=== PATIENT | female | born 2000 | race Caucasian/White ===

== ENCOUNTER → 2022-06-08 | Outpatient (CLI) | payer BC, SELFPAY ==
--- NOTE | 2022-06-08 10:36 | STEWCON_ITS ---
Reason For Study: SOB Stress Results Protocol: Mata Protocol WITH DEFINITY Maximum Predicted HR: 200 bpm Target HR: 170 bpm % Maximum Predicted HR: 95 % DurationHeart Rate Stage (mm:ss) (bpm) BP Comment BASELINE 82 138/802CC DEFINITY FOR ENTIRE TEST STAGE 3:00 141 122/88SOB NOTED TOWARDS END OF STAGE STAGE 2 3:00 146 138/78SOB NOTED STAGE 3 3:00 174 142/8 STAGE 4 0:37 190 / RECOVERY 86 130/62 Stress Duration: 9:37 mm:ss Maximum Stress HR: 190 bpm Baseline Echocardiogram Findings The estimated ejection fraction is 60-65 %. Post stress EF is 70%. Stress Echo Wall motion Data Resting WM Intermediate WM Stress WM Resting Wall Motion Wall Motion Stress No regional wall motion Parasternal long axis and short abnormalities noted. axis views revealed no significant regional wall motion abnormalities. Apical four- chamber view post stress is not available. Apical 2 chamber view post stress appears to be somewhat different orientation than the resting images making comparison with the resting images not ideal. EKG Data Sinus rhythm, incomplete right bundle branch block. No significant ischemic changes. Symptoms with Stress The patient experinced No chest pain . ECHO/Stress Test Echo W/Contrast Interpretation Summary The estimated ejection fraction is 60-65 %. Stress echo is negative for definite evidence of stress-induced EKG or echocard iographic changes of ischemia. Test is negative for exercise-induced chest pain. Functional capacity is normal This test has some limitations as described in the body of the report and if th e clinical suspicion for ischemia is high, consider a nuclear stress test. Ordering Physician: LOKESH CHAU Referring Physician: LOKESH CHAU Performed By: Trisha Mancera, RDCS, RVT
== END | disposition home or self-care (01) ==
LOC: CVS 10:32
DX: R00.2 Palpitations (principal); R06.09 Other forms of dyspnea; I45.10 Unspecified right bundle-branch block
CPT/HCPCS: 93017; 93350; Q9957; A4216; C8928

== ENCOUNTER → 2022-11-13 | Outpatient (CLI) | payer BC, SELFPAY ==
[2022-11-13 11:30] LABS: EXAGEN MAILED SPECIMEN
[2022-11-13 12:13] LABS: Absolute Lymphocyte Count 1.64 X10^3/uL (0.83-4.51); Basophil# 0.05 X10^3/uL; Basophil% 0.7 % (0-1); Eosinophil# 0.38 X10^3/uL; Eosinophils% 5.1 % (0-5); Hemoglobin 14.6 g/dL (12.0-15.0); Lymphocyte # 1.64 X10^3/ul (0.83-4.51); Mean Corpuscular Hgb 28.3 pg (27.0-32.0); Mean Corpuscular Volume 83.5 fL (81-99); Mean Platelet Vol. 12.5 fl (6.2-12.0); Monocyte% 5.4 % (0-10); NRBC Flagged by Analyzer 0 % (0-5); Neutrophil # 4.96 X10^3/uL (2.7-7.7); Neutrophil % 66.5 % (47-70); Platelet Count 255 K/mm3 (150-450); RBC Distribution Width CV 11.9 % (11.6-14.6); RBC Distribution Width SD 36.2 fl (35.1-43.9); Red Blood Count 5.15 M/mm3 (4.2-5.4); White Blood Count 7.5 K/mm3 (4.4-11.0)
[2022-11-13 12:19] LABS: International Normalized Ratio 1.1; Prothrombin Time (Protime)PT. 14.4 SECONDS (11.7-14.9)
[2022-11-13 12:21] LABS: Partial Thromboplast Time 35.5 Seconds (24.1-36.2)
[2022-11-13 12:24] LABS: Color, Urine Yellow (Yellow); Glucose, Dipstick Normal (Normal); Ketone-Dipstick 5 mg/dl (Negative); Leukocyte Esterase-Dipstick Negative /ul (Negative); Nitrite-Dipstick Negative (Negative); Occult Blood-Urine 10 /ul (Negative); Protein-Dipstick 15 mg/dl (Negative); Specific Gravity, Urine 1.025 (1.002-1.030); Urine Bilirubin Dipstick Negative (Negative); Urine Clarity Cloudy (Clear); Urine Urobilinogen Normal (Normal)
[2022-11-13 12:55] LABS: ALB/GLOB Ratio 1.2 RATIO (0.9-2.4); AST(SGOT) 13 U/L (15-37); Alanine Aminotransfer ALT/SGPT 20 U/L (13-56); Albumin, Serum 4.2 g/dL (3.2-5.0); Alkaline Phosphatase 61 U/L (45-117); Anion Gap 4 (5-15); BUN 17 mg/dL (7-18); BUN/Creat Ratio 17.6 RATIO (10-20); Calcium,Total 9.2 mg/dL (8.5-10.1); Chloride 109 mmol/L (98-107); Creatinine, Serum 0.97 mg/dL (0.55-1.02); EST Glomerular Filtration Rate 78 mL/min (>60); Est Glom Filt Rate - Afr Amer 94 mL/min (>60); Globulin 3.6 g/dL (2.2-4.2); Glucose 92 mg/dL (74-106); Protein, Total 7.8 g/dL (6.4-8.2); Sodium Level 138 mmol/L (136-145)
[2022-11-13 13:12] LABS: Protein, Urine (Random) 10.6 mg/dL (<11.9); Protein:Creat Ratio 41 mg/g CRE (0-200)
[2022-11-13 13:19] LABS: Hepatitis B Surface Antibody Reactive; Hepatitis B Surface Antigen Non-Reactive (Nonreactive); Hepatitis C Antibody Non-Reactive (Nonreactive)
[2022-11-15 18:08] LABS: Dilute Prothrombin Time (dPT) 39.4 sec (0.0-47.6); Dilute Russell Viper Venom 42.2 sec (0.0-47.0); Hexagonal Phase Phospholipid 9 sec (0-11); Hexagonal Phase Phospholipid 2 9 sec (0-11); Interpretation Comment: (.); PTT-LA 46.9 sec (0.0-43.5); PTT-LA Mix 41.4 sec (0.0-40.5); Thrombin Time 16.9 sec (0.0-23.0); dPT Confirm Ratio 1.17 Ratio (0.00-1.34)
== END | disposition home or self-care (01) ==
LOC: MTLAB 10:18
PROVIDERS: PCP Family Medicine; Referring Provider Internal Medicine Rheumatology; Visit Provider Internal Medicine Rheumatology
DX: R76.8 Other specified abnormal immunological findings in serum (principal); M06.4 Inflammatory polyarthropathy; E03.9 Hypothyroidism, unspecified
CPT/HCPCS: 36415; 80053; 81002; 82570; 84156; 85025; 85598; 85610; 85670; 85730; 86706; 86803; 87340

== ENCOUNTER → 2023-02-26 | Outpatient (CLI) | payer BC, SELFPAY ==
--- OUTSIDE RECORDS SUMMARY | 2023-02-26 12:58 | XMS RPT_ITS | CCD ---
Author Name Unknown Address [address] [place] [address] Organization [facility] Care Team Providers Care [employer] Law Clerk Name Role Phone Yordan Reilly MD Unavailable Unavailable Primary Care Provider Unavailabl e Unavailable Primary Care Provider [employer] Primary Care Provider Unav ailable JOSS BEAR Attending Unavailable SINDHU CHAU Primary Care Unavailable Genoveva Peoples MD Primary Care Provider SAROJ BRANTLEY Attending Unavailable SAROJ BRANTLEY Referring Unavailable GENOVEVA PEOPLES Primary Care Unavailable SAROJ BRANTLEY Attending Unavailable SINDHU CHAU Referring Unavailable JAIRO NORIEGA Primary Care Unavailable AMBERLY HENRIQUEZ Attending Unavailable GENOVEVA PEOPLES Primary Care Unavailable Medications Current Medications Medication Drug Class(es) Dates Sig (Normalized) Sig (Original) amoxicillin 875 mg oral tablet (1 source) Penicillin-class Antibacterial Start: 11-12-2021 End: 11-22-2021 take 1 tablet by mouth twice daily amoxicillin (AMOXIL) 875 mg tablet Indications: Bacterial sinusitis Take 1 tablet by mouth twice daily for 10 days. 20 tablet 0 11/12/2021 11/22/2021 Active Completed/Discontinued Medications Medication Drug Class(es) Dates Sig (Normalized) Sig (Original) Desogestrel / Ethinyl Estradiol (1 source) Progestin, Estrogen Start: 12-26-2017 Desogestrel-Ethiny l Estradiol 0.15-0.03 mg per tablet dexamethasone 4 mg oral tablet (1 source) Corticosteroid Start: 11-12-2021 take 1 tablet by mouth once daily dexAMETHasone (DECADRON) 4 mg tablet Indications: Bacterial sinusitis Take 1 tablet by mouth once daily. 4 tablet 0 11/12/2021 Active Problems Active Problems Problem Classification Problem Date Documented Date Episodic/Chronic Malaise and fatigue (4 sources) Fatigue; Translations: [Other fatigue] Onset: 11-12-2021 Episodic Other lower respiratory disease (4 sources) Dyspnea; Translations: [Shortness of breath] Onset: 11-06-2022 08-07-2022 Episodic Other lower respiratory disease (1 source) Shortness of breath; Translations: [Shortness of breath] Onset: 11-06-2022 Episodic Other non-traumatic joint disorders (1 source) Pain in elbow; Translations: [Pain in right elbow] Onset: 03-31-2018 03-31-2018 Episodic Other nutritional; endocrine; and metabolic disorders (2 sources) Obesity caused by energy imbalance; Translations: [Other obesity due to excess calories] Onset: 11-07-2022 11-07-2022 Chronic Other screening for suspected conditions (not mental disorders or infectious disease) (5 sources) Electrocardiogram abnormal; Translations: [Abnormal electrocardiogram [ECG] [EKG]] Onset: 11-06-2022 08-07-2022 Episodic Other upper respiratory infections (2 sources) Bacterial sinusitis; Translations: [Chronic sinusitis, unspecified] Onset: 11-12-2021 Chronic Sprains and strains (1 source) Sprain, elbow joint, medial collateral ligament; Translations: [Ulnar collateral ligament sprain of unspecified elbow, initial encounter] Onset: 03-31-2018 04-02-2018 Episodic Syncope (1 source) Syncope and collapse; Translations: [Fainting spell] Onset: 08-17-2022 Episodic Thyroid disorders (1 source) Hypothyroidism; Translations: [Hypothyroidism, unspecified] Onset: 11-07-2022 11-07-2022 Chronic Past or Other Problems Problem Classification Problem Date Documented Da te Episodic/Chronic Administrative/social admission (3 sources) Patient encounter status; Translations: [Persons encountering health services in other specified circumstances] Onset: 08-07-2022 08-07-2022 Episodic Bacterial infection; unspecified site (1 source) Other specified bacterial agents as the cause of diseases classified elsewhere; Translations: [Bacterial sinusitis] Onset: 11-12-2021 Episodic Cardiac dysrhythmias (6 sources) Palpitations; Translations: [Palpitations] Onset: 08-07-2022 08-07-2022 Episodic Conditions associated with dizziness or vertigo (2 sources) Dizziness; Translations: [Dizziness and giddiness] Onset: 11-12-2021 Episodic Residual codes; unclassified (1 source) Pain; Translations: [Pain] Episodic Unclassified (1 source) Problem Results Test Name Value Interpretation Reference Range Facil ity Vital Signs Date Time Vital Sign Value Performing Clinician Hernesto freire 11-07-2022 15:31-0400 Body height 170.2 cm Amberly Henriquez HYDRAMATIC SPECIALIST - JEWELRY FACER Work Phone: [facility] 11-07-2022 15:31-0400 Body mass index (BMI) [Ratio] 33.36 kg/m2 Amberly Johnsonk HYDRAMATIC SPECIALIST - JEWELRY FACER Work Phone: [facility] [employer] 11-07-2022 15:31-0400 Body weight 96.62 kg Amberly Johnsonk HYDRAMATIC SPECIALIST - JEWELRY FACER Work Phone: [facility] [employer] 11-07-2022 15:31-0400 Diastolic blood pressure 70 mm[Hg] Amberly Johnsonk HYDRAMATIC SPECIALIST - JEWELRY FACER Work Phone: [facility] 11-07-2022 15:31-0400 Heart rate 57 /min Amberly Henriquez HYDRAMATIC SPECIALIST - JEWELRY FACER Work Phone: [facility] [employer] 11-07-2022 15:31-0400 Respiratory rate 16 /min Amberly Johnny HYDRAMATIC SPECIALIST - JEWELRY FACER Work Phone: [facility] 11-07-2022 15:31-0400 SaO2% (BldA) [Mass fraction] 97 % Amberly Johnsonk HYDRAMATIC SPECIALIST - JEWELRY FACER Work Phone: [facility] [employer] 11-07-2022 15:31-0400 Systolic blood pressure 120 mm[Hg] Amberly Johnny HYDRAMATIC SPECIALIST - JEWELRY FACER Work Phone: [facility] [employer] 08-17-2022 15:40-0400 SaO2% (BldA) [Mass fraction] 97 % [facility] Encounters Encounter Date Encounter Type Care Provider Facility Start: 11-07-2022 End: 11-07-2022 ambulatory AMBERLY HENRIQUEZ [facility] Start: 11-07-2022 End: 11-07-2022 Office outpatient visit 25 minutes Amberly J Johnny APRN - JEWELRY FACER Work Phone: [facility] Cardiology Procedures Date Procedure Procedure Detail Performing Clinician Start: 11-07-2022 Ecg routine ecg w/le ast 12 lds trcg only w/o i&r Saroj Brantley MD Work Phone: Start: 11-06-2022 Cardiac mri w/wo con trast & further seq Saroj Brantley MD Work Phone: Start: 10-31-2022 Basic metabolic 2000 panel - Serum or Plasma Sindhu Chau APRN - JEWELRY FACER Work Phone: Start: 08-17-2022 Thyrotropin [Units/v olume] in Serum or Plasma Amberly Henriquez APRN - JEWELRY FACER Work Phone: Start: 08-07-2022 Ecg routine ecg w/le ast 12 lds w/i&r Saroj Brantley MD Work Phone: Start: 11-12-2021 Basic metabolic pane l calcium ionized Alyssia Harley DO Work Phone: Start: 11-12-2021 Heterophile antibodi es screen Alyssia Harley DO Work Phone: Start: 03-31-2018 End: 04-01-2018 Adolescent tobacco screening was negative - non user Yordan Reilly MD Work Phone: Plan of Treatment Date Care Activity Detail Author Start: 2052 Zoster Vaccines (1 of 2) Zoster Vaccines (1 of 2) [facility] Start: 06-22-2024 DTaP/Tdap/Td Vaccines (6 - Td or Tdap) DTaP/Tdap/Td Vaccines (6 - Td or Tdap) [facility] Start: 08-18-2023 Thyroid stimulating hormone measurement TSH Level [facility] Start: 05-10-2023 End: 05-10-2023 Patient encounter procedure 05/10/2023 2:45 PM EDT Office Visit [facility] Cardiology [address] [place] [id number] Saroj Brantley MD [address] [place] [address] [facility] Start: 11-07-2022 End: 11-07-2022 Patient encounter procedure 11/07/2022 3:30 PM EDT Office Visit [facility] Cardiology [address] [place] [id number] Amberly Henriquez, HYDRAMATIC SPECIALIST - JEWELRY FACER [address], [address] [place] [address] [facility]iology Start: 11-06-2022 End: 11-06-2022 Patient encounter procedure 11/06/2022 8:45 AM EDT Appointment [facility] [address] [place] [address] [facility] [address] Start: 10-12-2022 Influenza vaccination [facility] Start: 08-07-2022 End: 08-08-2023 Basic metabolic 1998 panel - Serum or Plasma Basic metabolic panel Lab Routine Palpitations Shortness of breath Expected: 08/07/2022 (Approximate), Expires: 08/08/2023 [facility] Immunizations Immunization Date Immunization Notes Care Provider Fa [facility] 12-26-2017 HPV, unspecified formulation Saroj Brantley MD Work Phone: [facility] 12-15-2008 influenza virus vaccine, unspecified formulation Saroj Brantley MD Work Phone: [facility] 10-12-2003 varicella virus vaccine Saroj Brantley MD Work Phone: [facility] No information available. Bhumi Patterson AT [facility] Work Phone: Payers Date Payer Category Payer Unknown THEO VENEGAS BS [facility] PPO [id number] 2015-Present PPO [id number] 2015 Unknown [id number] 2015 Unknown [id number] Social History Date Type Detail Facility Start: 2000 Sex Assigned At Not on file [facility] Start: 11-02-2021 End: 11-01-2022 Exposure to SARS-CoV-2 (event) Not sure [facility] Start: 11-12-2021 End: 08-07-2022 Tobacco smoking status NHIS Never smoked tobacco [facility] Start: 11-12-2021 End: 08-07-2022 Tobacco use and exposure Smokeless tobacco non-user [facility] Start: 08-07-2022 End: 11-07-2022 Alcohol intake Current drinker of alcohol (finding) [facility] Start: 08-07-2022 End: 11-07-2022 History of Social function [facility] Start: 08-07-2022 End: 11-07-2022 Tobacco use panel [facility] Start: 08-07-2022 Alcohol Comment occ [facility] ealt NEGATED: Highlighted rowStart: 03-31-2018 End: 03-31-2018 Alcohol use Unknown if ever smoked [facility] Work Phone: NEGATED: Highlighted rowStart: 03-31-2018 End: 03-31-2018 Details of drug misuse behavior DRUG USE No [facility] Work Phone: NEGATED: Highlighted rowStart: 03-31-2018 End: 03-31-2018 Employment detail OCCUPATION#1 student [facility] Work Phone: NEGATED: Highlighted rowStart: 03-31-2018 End: 03-31-2018 How many days of moderate to strenuous exercise, like a brisk walk, did you do in the last 7 days? EXERCISEFREQ 5 days per week [facility] Work Phone: NEGATED: Highlighted rowStart: 03-31-2018 End: 03-31-2018 Assertion Never smoker [facility] Work Phone: History of Present illness Narrative 11-07-2022 Amberly Henriquez, HYDRAMATIC SPECIALIST - JEWELRY FACER - 11/07/2022 3:30 PM EDT Note Date & Type Note Facility 11-07-2022 History of Presen t illness Narrative Images from the original note were not included. [facility] Cardiology Office Note DATE of SERVICE: 11/07/22 TIME of SERVICE: 4:08 PM Reason for Visit: Chief Complaint Patient presents with Palpitations History ofPresent Illness: Hermelindo Castillo is a 22 y.o. female who is known to Dr. Brantley. She was evaluated by Dr. Brantley in office August 07, 2022. She was reporting symptoms of palpitations, tachycardia, chest discomfort. This was mostly occurring with exertion, she had noted she had actually stopped playing college softball due to symptoms. She had undergone a stress echo which was reportedly normal. She wore an event monitor in May for 2 weeks ordered per her PCP which was also unremarkable, she was able to bring in the report today and we will scan for completeness of our records. Ultimately she was recommended and underwent a cardiac MRI 11/06/2022 which was also very normal. She had a normal LV systolic function measured 64%, no valvular disease, enhancement imaging for viability was normal, no evidence of infarction, scar, or infiltrative disease. No regional wall motion abnormalities. She tells me her palpitations have improved now that she has been on carvedilol 3.125 mg twice daily. She is now following up with rheumatology, she tells me she has had 2 different autonomic markers which are positive which she is following up on. She is also now being treated for hypothyroidism. She remains active, walking on a regular basis with no limiting symptoms. I made no further recommendations today. Past Medical History: No past medical history on file. Past Surgical History No past surgical history on file. Family History Family History Problem Relation Name Age of Onset Arrhythmia Father Hypertension Maternal Grandmother Heart failure Maternal Grandmother Social History Social History Tobacco Use Smoking status: Never Smokeless tobacco: Never Substance Use Topics Alcohol use: Yes Comment: occ Drug use: Not Currently Types: Marijuana Allergies: No Known Allergies Medications: Current Outpatient Medications: busPIRone (Buspar) 10 MG tablet, Take 1 tablet by mouth 3 times daily as needed., Disp: , Rfl: carvedilol (Coreg) 3.125 MG tablet, Take 1 tablet by mouth daily., Disp: , Rfl: dicyclomine (Bentyl) 20 MG tablet, Take 1 tablet by mouth 3 times daily., Disp: , Rfl: etonogestrel-eluting (Nexplanon) 68 mg contraceptive implant, 1 ea, Disp: , Rfl: sertraline (Zoloft) 100 MG tablet, Take 1 tablet by mouth daily., Disp: , Rfl: sertraline (Zoloft) 50 MG tablet, Take 1 tablet by mouth daily., Disp: , Rfl: Review of Systems: Review of Systems Constitutional: Negative for activity change, chills, diaphoresis, fatigue and fever. HENT: Negative for nosebleeds and trouble swallowing. Eyes: Negative for discharge and visual disturbance. Respiratory: Negative for apnea, cough, chest tightness, shortness of breath and wheezing. Denies SOB Cardiovascular: Negative for chest pain, palpitations and leg swelling. States she still gets palpitations but have improved Gastrointestinal: Negative for abdominal distention, abdominal pain, blood in stool, diarrhea, nausea and vomiting. Endocrine: Negative for cold intolerance and heat intolerance. Genitourinary: Negative for hematuria. Musculoskeletal: Negative for gait problem and myalgias. Skin: Negative for color change and rash. Neurological: Negative for dizziness, seizures, syncope, facial asymmetry, speech difficulty, weakness, light-headedness, numbness and headaches. Occasional dizziness, states symptoms are mild, overall non activity limiting Hematological: Does not bruise/bleed easily. Psychiatric/Behavioral: Negative for dysphoric mood. Physical Examination: Vitals: BP 120/70 (BP Location: Left arm, Patient Position: Sitting, BP Cuff Size: Large adult) Pulse 57 Resp 16 Ht 5' 7 (1.702 m) Wt 213 lb (96.6 kg) SpO2 97% BMI 33.36 kg/m Body mass index is 33.36 kg/m . Physical Exam Constitutional: Appearance: Normal appearance. Comments: Well compensated HENT: Head: Normocephalic. Nose: Nose normal. Eyes: General: Right eye: No discharge. Left eye: No discharge. Cardiovascular: Rate and Rhythm: Normal rate and regular rhythm. Heart sounds: No murmur heard. Comments: PACs present on EKG, rate controlled Pulmonary: Effort: Pulmonary effort is normal. Breath sounds: Normal breath sounds. No wheezing or rales. Comments: Clear t/o Abdominal: General: There is no distension. Palpations: Abdomen is soft. Musculoskeletal: Right lower leg: No edema. Left lower leg: No edema. Comments: BLE are nonedematous Skin: General: Skin is warm and dry. Findings: No rash. Neurological: Mental Status: She is alert and oriented to person, place, and time. Psychiatric: Mood and Affect: Mood normal. Laboratory Tests: Lab Results Component Value Date GLUCOSE 95 10/31/2022 CALCIUM 9.6 10/31/2022 CO2 26 10/31/2022 BUN 15 10/31/2022 CREATININE 1.00 (H) 10/31/2022 @LASTCMP@ No results found for: CHLPL , CHOL No results found for: TRIG No results found for: HDL No results found for: LDLCALC No results found for: VLDL No results found for: CHOLHDLRATIO Other Testing: Cardiac Tests: Cardiac Testing: Cardiac MRI- 11/06/2022- A cardiac MRI with and without contrast (Gadavist, 0.15 mmol/kg) is performed on a 3.0 T Siemens MRI system for cardiac morphology, function and viability assessment in a 22 year old female with symptoms of chest pain, and palpitations. Stress echo was normal (exercise time 9 minutes). She was referred to CMR for further evaluation of her symptoms. LEFT VENTRICLE: The cavity size is normal. The wall thickness is normal. There are no regional wall motion abnormalities. Global systolic function is normal with an ejection fraction calculated at 64%. VIABILITY: Hyperenhancement is normal.Delayed enhancement imaging for viability is normal. There is no evidence of myocardial infarction, scar or infiltrative disease. RIGHT VENTRICLE: The cavity size and wall thickness are normal. There are no regional wall motion abnormalities. Global systolic function is normal with and ejection fraction calculated at 51%. LV/RV SEPTUM: The LV/RV septum is normal. LA/RA SEPTUM: The LA/RA septum is normal. LEFT ATRIUM: LA cavity size is upper limits of normal. RIGHT ATRIUM: RA cavity size is normal. PERICARDIUM: Pericardium is normal. There is no pericardial effusion. PLEURAL EFFUSION: There is no pleural effusion. AORTIC VALVE: Aortic valve is trileaflet. There is no aortic stenosis. There is no aortic regurgitation. MITRAL VALVE: Mitral valve leaflets are normal. There is no mitral regurgitation. TRICUSPID VALVE: Tricuspid valve leaflets are normal. There is trivial tricuspid regurgitation. PULMONIC VALVE: Pulmonic valve leaflets are normal. There is no pulmonic regurgitation. AORTIC ROOT: The aortic root is normal. The ascending aorta is normal in size and measures 2.6 cm in diameter at the mid ascending aorta level. OTHER FINDINGS: There is no evidence of LV thrombus. The [place] T1 values are within normal limits and T2 values are normal (39 ms). There is no evidence of myocardial edema by T2W TORIE imaging. Assessment and Plan: 1. Palpitations-improved on low-dose carvedilol 3.125 mg twice daily -No further cardiac evaluation is felt to be warranted at this time, most recently she had a normal cardiac MRI November 06, 2022 -I recommended she remain active and continue with her daily walking program and abide to a heart healthy diet. 2. Obesity-she tells me she has been very motivated in fact she has lost 20 pounds over the last several weeks which I commended her for. 3. Hypothyroidism-now supplemented 4. Follow-up-6 months and as needed. Amberly Henriquez APRN/JEWELRY FACER documented in this encounter [facility] History of Present illness Narrative 08-07-2022 Saroj Brantley MD - 08/07/2022 10:20 AM EDT Note Date & Type Note Facility 08-07-2022 History of Presen t illness Narrative [facility] Cardiology [facility] CARDIOLOG[facility] [address] [facility] [address] Dept: [phone] Dept Loc: [phone] Visit type: New : 2000 Chief Complaint: Chief Complaint Patient presents with New Patient Shortness of Breath History of Present Illness: Hermelindo Castillo is a 22 y.o. female who is here because of symptoms of palpitations, tachycardia and chest pain. These have been going on for few months. She actually quit softball because of these. She was playing college softball. She will get the symptoms intermittently. She will get chest discomfort when she exercises. She will also have chest discomfort at rest. It is often associated with feeling her heart racing. She had a stress echo in which she exercised for 9 minutes without symptoms or EKG changes. Her echo reportedly was normal also. She wore an event monitor which we do not have the results. Apparently she had intermittent tachycardia with this. Past Medical History: History reviewed. No pertinent past medical history. Past Surgical History History reviewed. No pertinent surgical history. Family History Family History Problem Relation Name Age of Onset Arrhythmia Father Hypertension Maternal Grandmother Heart failure Maternal Grandmother Social History Social History Tobacco Use Smoking status: Never Smokeless tobacco: Never Substance Use Topics Alcohol use: Yes Comment: [facility] Drug use: Not Currently Types: Marijuana Allergies: No Known Allergies Medications: Current Outpatient Medications: busPIRone (Buspar) 10 MG tablet, Take 1 tablet by mouth 3 times daily as needed., Disp: , Rfl: carvedilol (Coreg) 3.125 MG tablet, Take 1 tablet by mouth daily., Disp: , Rfl: dicyclomine (Bentyl) 20 MG tablet, Take 1 tablet by mouth 3 times daily., Disp: , Rfl: etonogestrel-eluting (Nexplanon) 68 mg contraceptive implant, 1 ea, Disp: , Rfl: sertraline (Zoloft) 100 MG tablet, Take 1 tablet by mouth daily., Disp: , Rfl: sertraline (Zoloft) 50 MG tablet, Take 1 tablet by mouth daily., Disp: , Rfl: Review of Systems: Review of Systems Constitutional: Positive for fatigue. Negative for activity change, chills, diaphoresis and fever. HENT: Negative for nosebleeds and trouble swallowing. Eyes: Positive for visual disturbance ([facility] has unfocused/fuzzy vision with dizziness). Negative for discharge. Respiratory: Positive for chest tightness (daily) and shortness of breath (with any activity and stairs). Negative for apnea, cough and wheezing. Cardiovascular: Positive for chest pain (daily feels crushing pain under left breast) and palpitations. Negative for leg swelling. Gastrointestinal: Negative for abdominal distention, abdominal pain, blood in stool, diarrhea, nausea and vomiting. Endocrine: Negative for cold intolerance and heat intolerance. Genitourinary: Negative for hematuria. Musculoskeletal: Negative for gait problem and myalgias. Skin: Negative for color change and rash. Neurological: Positive for dizziness (occ) and syncope (occ near syncope with dizziness). Negative for seizures, facial asymmetry, speech difficulty, weakness, light-headedness, numbness and headaches. Hematological: Does not bruise/bleed easily. Psychiatric/Behavioral: Negative for dysphoric mood. Physical Examination: Vitals: Vitals: 08/07/22 1000 BP: 110/66 BP Location: Left arm Patient Position: Sitting BP Cuff Size: Adult Pulse: 57 Resp: 16 SpO2: 98% Weight: 222 lb (101 kg) Height: 5' 7 (1.702 m) Body mass index is 34.77 kg/m . Physical Exam Constitutional: Appearance: Normal appearance. HENT: Head: Normocephalic and atraumatic. Nose: Nose normal. Eyes: General: No scleral icterus. Extraocular Movements: Extraocular movements intact. Pupils: Pupils are equal, round, and reactive to light. Neck: Thyroid: No thyromegaly. Vascular: No carotid bruit or JVD. Cardiovascular: Rate and Rhythm: Normal rate and regular rhythm. Pulses: Normal pulses. Heart sounds: No murmur heard. No gallop. Pulmonary: Effort: Pulmonary effort is normal. Breath sounds: No wheezing, rhonchi or rales. Chest: Chest wall: No tenderness. Abdominal: General: Abdomen is flat. There is no distension. Palpations: Abdomen is soft. There is no hepatomegaly, splenomegaly or mass. Musculoskeletal: General: No swelling or tenderness. Normal range of motion. Cervical back: No tenderness. Skin: General: Skin is warm. Neurological: General: No focal deficit present. Mental Status: She is alert and oriented to person, place, and time. Cranial Nerves: Cranial nerves 2-12 are intact. No cranial nerve deficit. Psychiatric: Attention and Perception: Attention normal. Mood and Affect: Mood normal. Speech: Speech normal. Behavior: Behavior normal. Assessment and Plan: 1. Palpitations 2. Encounter to establish care with new doctor 3. Shortness of breath 4. Abnormal EKG 1. Chest pain: She has significant chest pain and dyspnea on exertion. Her stress test was unremarkable. The echo portion was reportedly unremarkable. I think we should make sure she does not have structural heart disease. I think a cardiac MRI may be the best test for her. We will arrange for this and then have her back afterwards. 2. Palpitations: Some of her symptoms may be related to an arrhythmia. We are trying to get the results of her event monitor. We may need to repeat this. 3. Incomplete right bundle branch block. 4. Shortness of breath: She does have increasing levels of shortness of breath. Again we will get a cardiac MRI to make sure she does not have structural heart disease. documented in this encounter [facility] Progress note 11-12-2021 Note Date & Type Note Facility 11-12-2021 Note HNO ID: [id number] Author: Alyssia Harley, DO Service: ? Author Type: Physician Type: Progress Notes Filed: 11/12/2021 4:58 PM Note Text: Hermelindo Castillo is a 21 year old FEMALE who presents with Headache (Dizzy lightheaded,,2 negative covid tests---symptoms 1 week) HPI History reviewed. No pertinent past medical history. There is no problem list on file for this patient. Current Outpatient Medications Medication Sig Dispense Refill busPIRone (BUSPAR) 10 mg tablet 1 tab(s) etonogestrel (NEXPLANON) 68 mg impl subdermal implant 1 ea sertraline (ZOLOFT) 50 mg tablet Take 50 mg by mouth once daily. For 30 days Desogestrel-Ethinyl Estradiol 0.15-0.03 mg per tablet No current facility-administered medications for this visit. Social History Tobacco Use Smoking status: Never Smokeless tobacco: Never Vaping Use Vaping Use: Never used Alcohol Use: Not on file Tobacco Use: Never History reviewed. No pertinent family history. Review of Systems Constitutional: Positive for chills, fever and malaise/fatigue. HENT: Positive for congestion, ear pain, sinus pain and sore throat. Musculoskeletal: Positive for myalgias. Neurological: Positive for dizziness, weakness and headaches. All other systems reviewed and are negative. BP 119/68 Pulse 70 Temp 97.4 Resp 16 Wt 213 lb (96.6kg) SpO2 98% LMP 10/27/2021 Physical Exam Vitals and nursing note reviewed. Constitutional: Appearance: Normal appearance. HENT: Head: Normocephalic and atraumatic. Ears: Comments: TMs are slightly erythematous at about 3 out of 10 bilaterally Nose: Congestion and rhinorrhea present. Mouth/Throat: Pharynx: Posterior oropharyngeal erythema present. Eyes: Conjunctiva/sclera: Conjunctivae normal. Cardiovascular: Rate and Rhythm: Normal rate and regular rhythm. Pulses: Normal pulses. Heart sounds: Normal heart sounds. Pulmonary: Effort: Pulmonary effort is normal. Breath sounds: Normal breath sounds. Abdominal: General: Abdomen is flat. Bowel sounds are normal. Palpations: Abdomen is soft. Comments: The splenic edge is down to 3 fingers below the left costal margin. Which is slightly enlarged. Patient was exposed to mono. 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 Lymphadenopathy: Cervical: No cervical adenopathy. Skin: General: Skin is warm. Capillary Refill: Capillary refill takes less than 2 seconds. Neurological: General: No focal deficit present. Mental Status: She is alert. Psychiatric: Mood and Affect: Mood normal. Laboratory testing is undertaken including a monotest and an i-STAT BMP. [place] test is negative and i-STAT shows a sodium of 142 potassium 4.2 chloride of 106 BUN is 19 creatinine is 0.9 glucose is 101. Basically all normal labs. ASSESSMENT/PLAN: 1. Dizziness - ICD9: 780.4, ICD10: R42 (primary diagnosis) - MONOTEST, INFECTIOUS MONO - ISTAT BMP 2. Fatigue, unspecified type - ICD9: 780.79, ICD10: R53.83 - MONOTEST, INFECTIOUS MONO - ISTAT BMP 3. SINUSITIS Alyssia Harley [facility] History of Present illness Narrative 11-12-2021 Alyssia Harley, DO - 11/12/2021 4:22 PM EDT Note Date & Type Note Facility 11-12-2021 History of Presen t illness Narrative Hermelindo Castillo is a 21 year old FEMALE who presents with Headache (Dizzy lightheaded,,2 negative covid tests---symptoms 1 week) HPI History reviewed. No pertinent past medical history. There is no problem list on file for this patient. Current Outpatient Medications Medication Sig Dispense Refill busPIRone (BUSPAR) 10 mg tablet 1 tab(s) etonogestrel (NEXPLANON) 68 mg impl subdermal implant 1 ea sertraline (ZOLOFT) 50 mg tablet Take 50 mg by mouth once daily. For 30 days Desogestrel-Ethinyl Estradiol 0.15-0.03 mg per tablet No current facility-administered medications for this visit. Social History Tobacco Use Smoking status: Never Smokeless tobacco: Never Vaping Use Vaping Use: Never used Alcohol Use: Not on file Tobacco Use: Never History reviewed. No pertinent family history. Review of Systems Constitutional: Positive for chills, fever and malaise/fatigue. HENT: Positive for congestion, ear pain, sinus pain and sore throat. Musculoskeletal: Positive for myalgias. Neurological: Positive for dizziness, weakness and headaches. All other systems reviewed and are negative. BP 119/68 Pulse 70 Temp 97.4 Resp 16 Wt 213 lb (96.6kg) SpO2 98% LMP 10/27/2021 Physical Exam Vitals and nursing note reviewed. Constitutional: Appearance: Normal appearance. HENT: Head: Normocephalic and atraumatic. Ears: Comments: TMs are slightly erythematous at about 3 out of 10 bilaterally Nose: Congestion and rhinorrhea present. Mouth/Throat: Pharynx: Posterior oropharyngeal erythema present. Eyes: Conjunctiva/sclera: Conjunctivae normal. Cardiovascular: Rate and Rhythm: Normal rate and regular rhythm. Pulses: Normal pulses. Heart sounds: Normal heart sounds. Pulmonary: Effort: Pulmonary effort is normal. Breath sounds: Normal breath sounds. Abdominal: General: Abdomen is flat. Bowel sounds are normal. Palpations: Abdomen is soft. Comments: The splenic edge is down to 3 fingers below the left costal margin. Which is slightly enlarged. Patient was exposed to mono. 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 Lymphadenopathy: Cervical: No cervical adenopathy. Skin: General: Skin is warm. Capillary Refill: Capillary refill takes less than 2 seconds. Neurological: General: No focal deficit present. Mental Status: She is alert. Psychiatric: Mood and Affect: Mood normal. Laboratory testing is undertaken including a monotest and an i-STAT BMP. [place] test is negative and i-STAT shows a sodium of 142 potassium 4.2 chloride of 106 BUN is 19 creatinine is 0.9 glucose is 101. Basically all normal labs. ASSESSMENT/PLAN: 1. Dizziness - ICD9: 780.4, ICD10: R42 (primary diagnosis) - MONOTEST, INFECTIOUS MONO - ISTAT BMP 2. Fatigue, unspecified type - ICD9: 780.79, ICD10: R53.83 - MONOTEST, INFECTIOUS MONO - ISTAT BMP 3. SINUSITIS Alyssia Harley documented in this encounter [facility] Evaluation note Note Date & Type Note Facility documented in this encounter [facility] Evaluation note Note Date & Type Note Facility documented in this encounter [facility] Evaluation note Note Date & Type Note Facility documented in this encounter [facility] Evaluation note Note Date & Type Note Facility documented in this encounter [facility] Chief Complaint Chief Complaint Description Start Date right elbow pain Preliminary chief co mplaint data, not yet signed by the author as of Instructions Instruction Description Start Date Completed Advance Directives There may be information available, but it has not been provided by the sender. No Advanced Directives Records FoundNo Advanced Directives Records FoundNo Advanced Directives Records FoundNo Advanced Directives Records Found Assessments Diagnosis Pain- Primary Generalized pain Review of System There may be information available, but it has not been provided by the sender. Family History There may be information available, but it has not been provided by the sender.No Family History Records FoundNo Family History Records FoundNo Family History Records FoundNo Family History Records Found History of Present Illness There may be information available, but it has not been provided by the sender. Summary Purpose Reason for Referral Specialty Diagnoses / Procedures Referred By Charlotte t Referred To Contact Radiology Diagnoses Shortness of breath Abnormal EKG Procedures MR cardiac morphology and function w and wo IV contrast Saroj Brantley MD [address] [place] [address] [address] [place] [address] Referral ID Status Reason Start Date Expiration Date V isits Requested Visits Authorized [id number] Pending Review 08/07/2022 02/03/2023 1 1 Referral ID Status Reason Start Date Expiration Date Visits Re quested Visits Authorized [id number] Closed 10/30/2022 11/28/2022 1 1 Additional Source Comments Reason for Visit (unrecogniz ed section and content) Reason Comments Headache Dizzy lightheaded,,2 negative covid tests---symptoms 1 week Reason Comments New Patient Shortness of Breath Specialty Diagnoses / Procedures Referred By Contac t Referred To Contact Cardiology Diagnoses Palpitations Other chest pain Shortness of breath Procedures consultation Dominic Sindhu, HYDRAMATIC SPECIALIST - J[employer]ACER [address] [place] [phone] Saroj Brantley MD [address] [facility] [address] [place] [address] Referral ID Status Reason Start Date Expiration Date Visits Re quested Visits Authorized [id number] Closed 07/13/2022 07/13/2023 1 1 Specialty Diagnoses / Procedures Referred By Contac t Referred To Contact Radiology Diagnoses Shortness of breath Abnormal EKG Procedures MR cardiac morphology and function w and wo IV contrast Saroj Brantley MD [address] [facility] [address] [place] [address] Referral ID Status Reason Start Date Expiration Date Visits Re quested Visits Authorized [id number] Closed 10/30/2022 11/28/2022 1 1 Reason Comments Palpitations INFORMATION SOURCE (unrecogn ized section and content) DATE CREATED AUTHOR AUTHOR'S ORGANIZ ATION 03/20/2019 [facility] DATE CREATED AUTHOR AUTHOR'S ORGANIZ ATION 08/21/2022 [facility] DATE CREATED AUTHOR AUTHOR'S ORGANIZ ATION 11/17/2022 [facility] Source Comments (unrecognize d section and content) In the event this informatio n is protected by the Federal Confidentiality of Alcohol and Drug Abuse Patient Records regulations: The Federal rules restrict any use of the information to criminally investigate or prosecute any alcohol or drug abuse patient.[facility] the event this information is protected by the Federal Confidentiality of Alcohol and Drug Abuse Patient Records regulations: The Federal rules restrict any use of the information to criminally investigate or prosecute any alcohol or drug abuse patient.[facility] Care Teams (unrecognized sec tion and content) [employer] Law [employer] Relationship Specialty Start Date End Date Jairo Noriega [address] [place] [id number] PCP - General 07/25/[address] [employer] [address] [employer] Law Clerk Relationship Specialty Start Date End Date Genoveva Peoples MD [address] [place] [phone] PCP - General Family Medicine 11/01/[address] [employer] [address] [employer] Law Clerk Relationship Specialty Start Date End Date Genoveva Peoples MD [address] [place] [phone] PCP - General Family Medicine 11/01/22 FOR RECORDS PERTAINING TO PATIENTS WHO ARE OR HAVE BEEN ENROLLED IN A CHEMICAL DEPENDENCY/SUBSTANCEABUSE PROGRAM, SOME INFORMATION MAY BE OMITTED. This clinical summary was aggregated from multiple sources. Caution should be exercised in using it in the provision of clinical care. This summary normalizes information from multiple sources, and as a consequence, information in this document may materially change the coding, format and clinical context of patient data. In addition, data may be omitted in some cases. CLINICAL DECISIONS SHOULD BE BASED ON THE PRIMARY CLINICAL RECORDS. [employer] [facility]. provides no warranty or guarantee of the accuracy or completeness of information in this document.
[2023-02-26 15:50] LABS: Absolute Lymphocyte Count 1.79 X10^3/uL (0.83-4.51); Absolute Neutrophil Count 5.1 X10^3/uL (2.0-7.7); Basophil# 0.03 X10^3/uL; Basophil% 0.4 % (0-1); Eosinophil# 0.39 X10^3/uL; Hematocrit 43.5 % (37-47); Hemoglobin 14.7 g/dL (12.0-15.0); Lymphocyte # 1.79 X10^3/ul (0.83-4.51); Mean Corp Hgb Conc 33.8 g/dL (32-36); Mean Corpuscular Hgb 29.4 pg (27.0-32.0); Mean Platelet Vol. 12.3 fl (6.2-12.0); Monocyte# 0.45 X10^3/uL; Monocyte% 5.8 % (0-10); NRBC Flagged by Analyzer 0 % (0-5); Neutrophil # 5.11 X10^3/uL (2.7-7.7); Neutrophil % 65.5 % (47-70); Platelet Count 255 K/mm3 (150-450); RBC Distribution Width SD 38.7 fl (35.1-43.9); White Blood Count 7.8 K/mm3 (4.4-11.0)
[2023-02-26 16:47] LABS: ALB/GLOB Ratio 1.2 RATIO (0.9-2.4); AST(SGOT) 14 U/L (15-37); Alanine Aminotransfer ALT/SGPT 21 U/L (13-56); Albumin, Serum 4.1 g/dL (3.2-5.0); Alkaline Phosphatase 66 U/L (45-117); Anion Gap 6 (5-15); BUN 11 mg/dL (7-18); BUN/Creat Ratio 10.5 RATIO (10-20); Calcium,Total 9.2 mg/dL (8.5-10.1); Chloride 111 mmol/L (98-107); Creatinine, Serum 1.05 mg/dL (0.55-1.02); EST Glomerular Filtration Rate 70 mL/min (>60); Est Glom Filt Rate - Afr Amer 85 mL/min (>60); Globulin 3.4 g/dL (2.2-4.2); Glucose 74 mg/dL (74-106); Potassium 4.1 mmol/L (3.5-5.1); Protein, Total 7.5 g/dL (6.4-8.2); Sodium Level 144 mmol/L (136-145)
== END | disposition home or self-care (01) ==
LOC: MTLAB 12:37
PROVIDERS: PCP Family Medicine; Referring Provider Internal Medicine Rheumatology; Visit Provider Internal Medicine Rheumatology
DX: M06.4 Inflammatory polyarthropathy (principal); R76.8 Other specified abnormal immunological findings in serum; Z79.899 Other long term (current) drug therapy
CPT/HCPCS: 36415; 80053; 85025

== ENCOUNTER → 2023-09-10 | Outpatient (CLI) | payer BC, SELFPAY ==
[2023-09-10 15:17] LABS: Absolute Lymphocyte Count 1.42 X10^3/uL (0.83-4.51); Absolute Neutrophil Count 5.2 X10^3/uL (2.0-7.7); Basophil# 0.04 X10^3/uL; Basophil% 0.5 % (0-1); Eosinophil# 0.22 X10^3/uL; Hematocrit 36.7 % (37-47); Hemoglobin 12.5 g/dL (12.0-15.0); Lymphocyte # 1.42 X10^3/ul (0.83-4.51); Lymphocyte % 19.4 % (19-41); Mean Corp Hgb Conc 34.1 g/dL (32-36); Mean Corpuscular Hgb 28.8 pg (27.0-32.0); Mean Corpuscular Volume 84.6 fL (81-99); Monocyte# 0.39 X10^3/uL; Monocyte% 5.3 % (0-10); NRBC Flagged by Analyzer 0 % (0-5); Neutrophil # 5.22 X10^3/uL (2.7-7.7); Neutrophil % 71.5 % (47-70); Platelet Count 188 K/mm3 (150-450); RBC Distribution Width CV 11.8 % (11.6-14.6); Red Blood Count 4.34 M/mm3 (4.2-5.4); White Blood Count 7.3 K/mm3 (4.4-11.0)
[2023-09-10 15:36] LABS: ALB/GLOB Ratio 1.2 RATIO (0.9-2.4); AST(SGOT) 13 U/L (15-37); Alanine Aminotransfer ALT/SGPT 17 U/L (13-56); Albumin, Serum 3.7 g/dL (3.2-5.0); Alkaline Phosphatase 46 U/L (45-117); Anion Gap 5 (5-15); BUN 12 mg/dL (7-18); BUN/Creat Ratio 12.5 RATIO (10-20); Calcium,Total 8.9 mg/dL (8.5-10.1); Chloride 108 mmol/L (98-107); Creatinine, Serum 0.96 mg/dL (0.55-1.02); EST Glomerular Filtration Rate 78 mL/min (>60); Est Glom Filt Rate - Afr Amer 94 mL/min (>60); Glucose 90 mg/dL (74-106); Protein, Total 6.7 g/dL (6.4-8.2); Sodium Level 141 mmol/L (136-145)
== END | disposition home or self-care (01) ==
LOC: MTLAB 13:31
PROVIDERS: PCP Family Medicine; Referring Provider Internal Medicine Rheumatology; Visit Provider Internal Medicine Rheumatology
DX: M06.4 Inflammatory polyarthropathy (principal); R76.8 Other specified abnormal immunological findings in serum; Z79.899 Other long term (current) drug therapy
CPT/HCPCS: 36415; 80053; 85025

== ENCOUNTER → 2023-12-20 | Outpatient (CLI) | payer BC, SELFPAY ==
[2023-12-20 15:16] LABS: Absolute Lymphocyte Count 1.77 X10^3/uL (0.83-4.51); Absolute Neutrophil Count 4.8 X10^3/uL (2.0-7.7); Basophil# 0.05 X10^3/uL; Basophil% 0.7 % (0-1); Eosinophil# 0.39 X10^3/uL; Eosinophils% 5.3 % (0-5); Hemoglobin 13.8 g/dL (12.0-15.0); Lymphocyte # 1.77 X10^3/ul (0.83-4.51); Lymphocyte % 23.9 % (19-41); Mean Corp Hgb Conc 34.5 g/dL (32-36); Mean Corpuscular Hgb 29.2 pg (27.0-32.0); Mean Corpuscular Volume 84.7 fL (81-99); Monocyte# 0.43 X10^3/uL; Monocyte% 5.8 % (0-10); NRBC Flagged by Analyzer 0 % (0-5); Neutrophil # 4.76 X10^3/uL (2.7-7.7); Platelet Count 216 K/mm3 (150-450); RBC Distribution Width CV 11.7 % (11.6-14.6); RBC Distribution Width SD 35.8 fl (35.1-43.9); Red Blood Count 4.72 M/mm3 (4.2-5.4); White Blood Count 7.4 K/mm3 (4.4-11.0)
[2023-12-20 15:40] LABS: ALB/GLOB Ratio 1.2 RATIO (0.9-2.4); AST(SGOT) 8 U/L (15-37); Alanine Aminotransfer ALT/SGPT 13 U/L (13-56); Alkaline Phosphatase 52 U/L (45-117); Anion Gap 4 (5-15); BUN 11 mg/dL (7-18); BUN/Creat Ratio 11.1 RATIO (10-20); Calcium,Total 8.9 mg/dL (8.5-10.1); Chloride 111 mmol/L (98-107); Creatinine, Serum 0.99 mg/dL (0.55-1.02); EST Glomerular Filtration Rate 75 mL/min (>60); Est Glom Filt Rate - Afr Amer 91 mL/min (>60); Globulin 3.3 g/dL (2.2-4.2); Glucose 94 mg/dL (74-106); Protein, Total 7.3 g/dL (6.4-8.2); Sodium Level 142 mmol/L (136-145)
== END | disposition home or self-care (01) ==
LOC: MTLAB 12:38
PROVIDERS: PCP Family Medicine; Referring Provider Internal Medicine Rheumatology; Visit Provider Internal Medicine Rheumatology
DX: M06.4 Inflammatory polyarthropathy (principal); R76.8 Other specified abnormal immunological findings in serum; Z79.899 Other long term (current) drug therapy
CPT/HCPCS: 36415; 80053; 85025

== ENCOUNTER → 2024-06-11 | Outpatient (CLI) | payer BC, SELFPAY ==
[2024-06-11 12:23] LABS: Absolute Lymphocyte Count 1.44 X10^3/uL (0.83-4.51); Absolute Neutrophil Count 6.6 X10^3/uL (2.0-7.7); Basophil# 0.03 X10^3/uL; Basophil% 0.3 % (0-1); Eosinophil# 0.16 X10^3/uL; Eosinophils% 1.8 % (0-5); Hematocrit 37.4 % (37-47); Hemoglobin 13.2 g/dL (12.0-15.0); Lymphocyte # 1.44 X10^3/ul (0.83-4.51); Lymphocyte % 16.3 % (19-41); Mean Corp Hgb Conc 35.3 g/dL (32-36); Mean Corpuscular Hgb 29.4 pg (27.0-32.0); Mean Corpuscular Volume 83.3 fL (81-99); Monocyte# 0.53 X10^3/uL; NRBC Flagged by Analyzer 0 % (0-5); Neutrophil # 6.64 X10^3/uL (2.7-7.7); Neutrophil % 75.3 % (47-70); Platelet Count 194 K/mm3 (150-450); RBC Distribution Width CV 11.9 % (11.6-14.6); RBC Distribution Width SD 35.5 fl (35.1-43.9); Red Blood Count 4.49 M/mm3 (4.2-5.4); White Blood Count 8.8 K/mm3 (4.4-11.0)
[2024-06-11 13:38] LABS: ALB/GLOB Ratio 1.7 RATIO (0.9-2.4); AST(SGOT) 12 U/L (<=31); Alanine Aminotransfer ALT/SGPT 8 U/L (<=34); Albumin, Serum 4.1 g/dL (3.5-5.0); Alkaline Phosphatase 35 U/L (35-104); Anion Gap 11 (5-15); BUN 9 mg/dL (4-19); BUN/Creat Ratio 9.9 RATIO (10-20); Calcium,Total 8.7 mg/dL (7.6-11.0); Carbon Dioxide 21.2 mmol/L (21.0-32.0); Chloride 103 mmol/L (98-108); Creatinine, Serum 0.87 mg/dL (0.70-1.20); EST Glomerular Filtration Rate 97 (>60); Globulin 2.4 g/dL (2.2-4.2); Glucose 74 mg/dL (70-99); Potassium 3.8 mmol/L (3.3-5.1); Protein, Total 6.5 g/dL (5.9-8.4); Sodium Level 135 mmol/L (133-145); Total Bilirubin 0.71 mg/dL (0.00-1.30)
== END | disposition home or self-care (01) ==
LOC: MTLAB 10:09
PROVIDERS: PCP Family Medicine; Referring Provider Internal Medicine Rheumatology; Visit Provider Internal Medicine Rheumatology
DX: M06.4 Inflammatory polyarthropathy (principal); Z79.899 Other long term (current) drug therapy; R76.8 Other specified abnormal immunological findings in serum
CPT/HCPCS: 36415; 80053; 85025